=== PATIENT | male | born 1970 | race Caucasian/White ===

== ENCOUNTER 2016-03-04 12:02 | Emergency (ER) | payer MEDICAID ==
[~2016-03-04] VITALS: Ht 185.4 cm; Wt 93.1 kg
[2016-03-04] MEDS ORDERED: ONDANSETRON 4 MG (ZOFRAN) ORAL DISSOLVE TAB PO ONE (13:35)
[2016-03-04] MEDS ORDERED: DIAZEPAM 10 MG/2 ML (VALIUM) SYRINGE IM ONE (13:35)
[2016-03-04] MEDS ORDERED: HYDROmorphone 2 MG/ML (DILAUDID) 1 ML SYRINGE IM ONE (13:35)
[2016-03-04 14:06] VITALS: BP 103/78
== END 2016-03-04 14:09 | disposition home or self-care (01) ==
LOC: ED 12:04
DX: G89.29 Other chronic pain (principal); T88.7XXA Unspecified adverse effect of drug or medicament, initial encounter; F11.20 Opioid dependence, uncomplicated; T40.2X5A Adverse effect of other opioids, initial encounter
CPT/HCPCS: 96372; 99282; A9270; J1170; J3360; 99283